=== PATIENT | female | born 1990 | race African-American/Black ===

== ENCOUNTER 2019-10-11 07:52 | Emergency (ER) | payer SELFPAY ==
[~2019-10-11] VITALS: Ht 170.2 cm; Wt 113.7 kg
[2019-10-11 08:01] VITALS: BP 120/83
--- NOTE | 2019-10-11 09:59 | NUR ---
pt given dc instructions and script, educated regarding rx for albuterol and tessalon perles. pt a&o, resps even and unlabored, pt amb to dc desk with steady gait. all questions answered.
== END 2019-10-11 10:01 | disposition home or self-care (01) ==
LOC: ED 09:45
DX: J06.9 Acute upper respiratory infection, unspecified (principal)
CPT/HCPCS: 71046; 99283